=== PATIENT | female | born 1970 | race Caucasian/White ===

== ENCOUNTER 2019-02-13 22:48 | Observation (INO) ==
[2019-02-14 00:04] LABS: Basophils % 0.3 % (0.0-0.8); Eosinophils # 0.1 10*3/uL (0.0-0.87); Eosinophils % 1.6 % (0.00-10.9); Hemoglobin 12.1 GM/DL (12.0-16.0); Immature Granulocytes % 0.4 %; Immature Granulocytes Absolute 0.03 #; Lymphocytes # 1.1 10*3/uL (1.4-4.0); Lymphocytes % 14.6 % (21.3-54.2); Mean Corpuscular HGB Conc 33.6 GM/DL (32-36); Mean Corpuscular Volume 92.8 FL (87-102); Mean Platelet Volume 9.7 FL (9.6-12.0); Monocytes % 4.7 % (1.7-12.7); Neutrophils % 78.4 % (38.7-73.9); Platelet Count 248 T/CUMM (130-400); Red Blood Count 3.88 MC/CUMM (3.8-5.5); Red Cell Distribution Width 12.3 % (9.3-17.3); White Blood Count 7.6 T/CUMM (4-12)
[2019-02-14 00:16] LABS: Calcium 9.3 MG/DL (8.5-10.1); Osmolality,Calculated 281.5 MOS/KG (273-304)
[2019-02-14] MEDS ORDERED: ONDANSETRON 4 MG/2 ML VIAL IV STA (00:54)
[2019-02-14] MEDS ORDERED: MORPHINE 4 MG/1 ML VIAL IV PRN (03:05)
[2019-02-14] MEDS ORDERED: NICOTINE 21 MG/24 HR PATCH TRANSDERM PRN (03:05)
[2019-02-14] MEDS ORDERED: diphenhydrAMINE CAP 25 MG CAPSULE PO PRN (03:05)
[2019-02-14] MEDS ORDERED: ACETAMINOPHEN 325 MG TABLET PO PRN (03:05)
[2019-02-14] MEDS ORDERED: MAGNESIUM SULF RIDER 4 GM in PREMIX 1 EACH IV PRN (03:12)
[2019-02-14] MEDS ORDERED: MAGNESIUM SULF RIDER 2 GM in PREMIX 1 EACH IV PRN (03:12)
[2019-02-14] MEDS ORDERED: ALBUTEROL/IPRATROPIUM 3 ML NEB RESP TX PRN (03:12)
[2019-02-14 03:47] LABS: Risk Ratio 3.2; Thyroid Stimulating Hormone 3.8 uIU/ml (0.358-3.74); VLDL CHOLESTEROL 47.8 MG/DL
[2019-02-14] MEDS: POTASSIUM CHLORIDE 20 MEQ TABLET PO PRN ×3 (05:14→12:20)
[2019-02-14] MEDS: ONDANSETRON 4 MG/2 ML VIAL IV PRN ×2 (07:48→22:01)
[2019-02-14] MEDS: PANTOPRAZOLE 40 MG TABLET PO SCH (08:39)
[2019-02-14] MEDS: ASPIRIN 325 MG TABLET PO SCH (08:39)
[2019-02-14] MEDS: LOSARTAN/HCTZ 50-12.5 MG TABLET PO SCH (08:39)
[2019-02-14] MEDS: ENOXAPARIN 40 MG/0.4 ML SYRINGE SUBCUT SCH (08:50)
[2019-02-14] MEDS ORDERED: BUDESONIDE FORMOTEROL INH SCH (09:00)
[2019-02-14] MEDS ORDERED: Budesonide-Formoterol [Symbicort] 2 PUFF INH SCH (09:00)
[2019-02-14] MEDS ORDERED: Budesonide-Formoterol [Symbicort] INH SCH (09:00)
[2019-02-14 09:28] LABS: Apearance,Urine CLEAR (Clear); Bacteria,Urine Occasional /HPF (Few); Bilirubin,Urine Negative (Negative); Blood, Urine Negative (Negative); Glucose,Urine (UA) Negative (Negative); Ketones,Urine Negative (Negative); Nitrite,Urine Negative (Negative); Protein,Urine Negative; Squamous Epithelial Cell,Urine Occasional /HPF (0-10); Urine Color Colorless (Yellow); Urine Specific Gravity 1.009 (1.001-1.035); Urine Urobilinogen < 2.0 EU/DL (0.2-1.0)
[2019-02-14] MEDS: SIMVASTATIN 20 MG TABLET PO SCH (22:01)
[2019-02-15] MEDS: ONDANSETRON 4 MG/2 ML VIAL IV PRN ×3 (04:07→12:55)
[2019-02-15 04:50] LABS: Basophils % 0.3 % (0.0-0.8); Eosinophils # 0.1 10*3/uL (0.0-0.87); Eosinophils % 2.1 % (0.00-10.9); Hematocrit 34.9 VOL% (35.7-47.0); Hemoglobin 11.3 GM/DL (12.0-16.0); Immature Granulocytes % 0.3 %; Immature Granulocytes Absolute 0.02 #; Lymphocytes # 1.2 10*3/uL (1.4-4.0); Lymphocytes % 20.2 % (21.3-54.2); Mean Corpuscular HGB Conc 32.4 GM/DL (32-36); Mean Corpuscular Volume 95.6 FL (87-102); Monocytes % 6.7 % (1.7-12.7); Neutrophils % 70.4 % (38.7-73.9); Platelet Count 200 T/CUMM (130-400); Red Blood Count 3.65 MC/CUMM (3.8-5.5); Red Cell Distribution Width 12.5 % (9.3-17.3); White Blood Count 5.8 T/CUMM (4-12)
[2019-02-15 05:22] LABS: Calcium 8.7 MG/DL (8.5-10.1); Osmolality,Calculated 287.1 MOS/KG (273-304)
[2019-02-15] MEDS ORDERED: POTASSIUM CHLORIDE RIDER 10 MEQ in PREMIX 1 EACH IV PRN (06:30)
[2019-02-15] MEDS ORDERED: diphenhydrAMINE CAP 25 MG CAPSULE PO ONE (06:30)
[2019-02-15] MEDS ORDERED: MAGNESIUM SULF RIDER 2 GM in PREMIX 1 EACH IV PRN (06:30)
[2019-02-15] MEDS ORDERED: DIAZEPAM 5 MG TABLET PO ONE (06:30)
[2019-02-15 07:11] LABS: Alanine Aminotransferase 26 U/L (13-56); Albumin 3.5 G/DL (3.4-5.0); Alkaline Phosphatase 80 U/L (45-117); Aspartate Amino Transferase 17 U/L (0-37); Bilirubin,Direct < 0.050 MG/DL (0.0-0.20); Bilirubin,Indirect 0.3 MG/DL (0.0-1.0); Bilirubin,Total < 0.39 MG/DL (0.2-1.0); Total Protein 6.6 G/DL (6.4-8.3)
[2019-02-15] MEDS ORDERED: SODIUM CHLORIDE 0.45% 1,000 ML IV SCH (08:00)
[2019-02-15] MEDS: POTASSIUM CHLORIDE 20 MEQ TABLET PO PRN (08:44)
[2019-02-15] MEDS: PANTOPRAZOLE 40 MG TABLET PO SCH ×2 (08:44→21:54)
[2019-02-15] MEDS: ASPIRIN 325 MG TABLET PO SCH (08:44)
[2019-02-15] MEDS: LOSARTAN/HCTZ 50-12.5 MG TABLET PO SCH (08:44)
[2019-02-15] MEDS: ENOXAPARIN 40 MG/0.4 ML SYRINGE SUBCUT SCH (08:45)
[2019-02-15] MEDS ORDERED: LIDOCAINE 1% 20 ML VIAL ONE (11:04)
[2019-02-15] MEDS ORDERED: NITROGLYCERIN DRIP 50 MG/250 ML BOTTLE IV ONE (11:04)
[2019-02-15] MEDS ORDERED: MIDAZOLAM 2 MG/2 ML VIAL ONE ×2 (11:05→11:23)
[2019-02-15] MEDS ORDERED: VERAPAMIL 5 MG/2 ML VIAL ONE (11:05)
[2019-02-15] MEDS ORDERED: HYDROmorphone 2 MG/1 ML VIAL ONE (11:05)
[2019-02-15] MEDS ORDERED: ENOXAPARIN 60 MG/0.6 ML SYRINGE ONE (11:27)
[2019-02-15] MEDS ORDERED: PROMETHAZINE 25 MG/1 ML VIAL IM PRN (14:38)
[2019-02-15] MEDS: SIMVASTATIN 20 MG TABLET PO SCH (21:54)
[2019-02-16 04:29] LABS: Basophils % 0.3 % (0.0-0.8); Eosinophils # 0.1 10*3/uL (0.0-0.87); Eosinophils % 1.2 % (0.00-10.9); Hematocrit 35.8 VOL% (35.7-47.0); Hemoglobin 11.9 GM/DL (12.0-16.0); Immature Granulocytes % 0.4 %; Immature Granulocytes Absolute 0.03 #; Lymphocytes % 12.5 % (21.3-54.2); Mean Corpuscular HGB Conc 33.2 GM/DL (32-36); Mean Corpuscular Volume 93.7 FL (87-102); Mean Platelet Volume 9.8 FL (9.6-12.0); Neutrophils % 79.6 % (38.7-73.9); Platelet Count 214 T/CUMM (130-400); Red Blood Count 3.82 MC/CUMM (3.8-5.5); Red Cell Distribution Width 12.2 % (9.3-17.3); White Blood Count 7.7 T/CUMM (4-12)
[2019-02-16 05:04] LABS: Calcium 8.5 MG/DL (8.5-10.1); Osmolality,Calculated 279.5 MOS/KG (273-304)
[2019-02-16 05:18] LABS: Anisocytosis Slight; Hypochromasia Slight
[2019-02-16 05:19] LABS: Microcytosis Slight; Platelet Estimate Adequate; Target Cells Slight
[2019-02-16] MEDS: ENOXAPARIN 40 MG/0.4 ML SYRINGE SUBCUT SCH (09:36)
[2019-02-16] MEDS: ASPIRIN 325 MG TABLET PO SCH (09:40)
[2019-02-16] MEDS: LOSARTAN/HCTZ 50-12.5 MG TABLET PO SCH (09:40)
[2019-02-16] MEDS: PANTOPRAZOLE 40 MG TABLET PO SCH (09:40)
[2019-02-16] MEDS ORDERED: PROPOFOL 200 MG/20 ML VIAL IV ONE (10:00)
[2019-02-16] MEDS ORDERED: LIDOCAINE 100 MG/5 ML SYRINGE ONE (10:00)
[2019-02-16 12:07] VITALS: BP 153/74
== END 2019-02-16 16:45 | disposition home or self-care (01) ==
LOC: N.EDINP 22:48 → N.ED 22:48 → SUATTDRO 02-14 03:05 → N.TELES 02-14 03:52
PROVIDERS: ADMIT Internal Medicine; ATTEND Hospitalist
PROC: CLCCHCL (ICD-10-PCS; 2019-02-15 11:15)